=== PATIENT | male | born 1995 | race African-American/Black ===

== ENCOUNTER 2016-06-25 00:21 | Emergency (ER) | payer MEDICAID ==
[~2016-06-25] VITALS: Ht 185.4 cm; Wt 97.1 kg
[2016-06-25] MEDS ORDERED: HYDROCODONE/ACETAMINOPHEN 5/325MG TABLET PO ONE (02:45)
[2016-06-25 02:50] VITALS: BP 114/64
[2016-06-25 03:01] LABS: BASOPHILS % 0.4 % (0.0-2.0); EOSINOPHILS % 2.2 % (0.0-5.0); HEMATOCRIT. 42.3 % (42.0-52.0); HEMOGLOBIN. 13.8 g/dL (14.0-18.0); LYMPHOCYTES % 12.5 % (20.0-50.0); MEAN CORPUSCULAR HEMOGLOBIN 27.9 pg (28.0-32.0); MEAN CORPUSCULAR HGB CONC 32.7 g/dL (31.0-37.0); MEAN CORPUSCULAR VOLUME 85.4 fL (80.0-94.0); MEAN PLATELET VOLUME 7.6 fl (7.4-10.4); MONOCYTES % 11.3 % (2.0-8.0); NEUTROPHILS % 73.6 % (40.0-76.0); PLATELET 153 x1000/uL (130-400); RED BLOOD CELL COUNT 4.95 mill/uL (4.7-6.1); RED CELL DISTRIBUTION WIDTH 14.8 % (11.6-14.6); WHITE BLOOD COUNT 13.9 x1000/uL (4.5-11.0)
[2016-06-25 03:09] LABS: INR 1.1; PROTHROMBIN TIME 11.3 sec
[2016-06-25 03:17] LABS: ALANINE AMINOTRANSFERASE 14 IU/L (13-61); ALBUMIN 4.1 g/dL (3.4-5.0); CARBON DIOXIDE 27 mEq/L (21-32); INDEX HEMOLYSI 1 (1-3); INDEX ICTERIC 2 (1-4); INDEX LIPEMIC 1 (1-3); UREA NITROGEN BLOOD 15 mg/dL (7-21); eGFR > 60 mL/min (>60)
[2016-06-25 03:25] LABS: ANION GAP 16; CHLORIDE 103 mEq/L (98-107)
== END 2016-06-25 05:25 | disposition home or self-care (01) ==
LOC: ER 00:33
DX: L03.116 Cellulitis of left lower limb (principal); Z79.1 Long term (current) use of non-steroidal anti-inflammatories (NSAID)
CPT/HCPCS: 36415; 73630; 80053; 83605; 85025; 85610; 99285